=== PATIENT | female | born 1975 | race Caucasian/White ===

== ENCOUNTER 2021-02-24 16:13 | Outpatient (REF) | payer OTHER, SELFPAY ==
--- NOTE | ~2021-02-24 | CT_ITS ---
EXAMINATION: CT CHEST WITHOUT CONTRAST CLINICAL INFORMATION: Pulmonary nodule follow-up. Hemoptysis. Emphysema. COMPARISON: 06/25/2019 TECHNIQUE: Multidetector volumetric CT imaging of the chest was done. Axial MIP volume rendering provided. Sagittal and coronal reformatted images were obtained. This CT examination was performed using dose optimization techniques as appropriate, variously including the following: *Automated exposure control *Adjustment of mA and/or kV according to patient size (this includes techniques or standardized protocols for targeted exams where dose is matched to indication/reason for exam; i.e. extremities or head) *Use of iterative reconstruction technique DLP: 142 mGy-cm FINDINGS: HAND SCUDDER: Unremarkable. LUNGS: The central airways are patent. No consolidation. No pneumothorax. Minimal linear atelectasis in the lingula and right middle lobe. Multiple subpleural nodules measuring up to 0.3 cm are unchanged. For instance as seen on series 7 image 161 in the right upper lobe and image 315 in the right lower lobe along the major fissure. No new pulmonary nodules are present. MEDIASTINUM: Normal heart size. No pericardial effusion. No mediastinal lymphadenopathy. PLEURA: There is no pleural effusion. No pleural mass or thickening. AXILLA: No lymphadenopathy. UPPER ABDOMEN: Contrast noted in the colon. No acute or suspicious abnormalities. OSSEOUS STRUCTURES: Unremarkable. CT/CT chest wo con IMPRESSION: Unchanged tiny pulmonary nodules. This suggests benign etiology. No further follow-up recommended. Fleischner guidelines were followed.
== END 2021-02-24 16:14 | disposition home or self-care (01) ==
LOC: HO.CT 16:13
PROVIDERS: PCP Pediatrics; Visit Provider Pediatrics
DX: R91.8 Other nonspecific abnormal finding of lung field (principal)
CPT/HCPCS: 71250